=== PATIENT | female | born 1935 | race Two or more races ===

== ENCOUNTER 2020-01-01 14:22 | Outpatient (CLI) | payer BC, MEDICARE | END 2020-01-01 23:59 | disposition home or self-care (01) | LOC: WOU 14:22 | PROVIDERS: ATTEND Specialist | DX: S81.812D Laceration without foreign body, left lower leg, subsequent encounter (principal); W18.49XD Other slipping, tripping and stumbling without falling, subsequent encounter; Z79.01 Long term (current) use of anticoagulants | CPT/HCPCS: 99205; A6209; G0463 ==

== ENCOUNTER 2020-01-08 14:10 | Outpatient (CLI) | payer BC, MEDICARE | END 2020-01-08 23:59 | disposition home or self-care (01) | LOC: WOU 14:10 | PROVIDERS: ATTEND Specialist | DX: S81.012D Laceration without foreign body, left knee, subsequent encounter (principal); S81.812D Laceration without foreign body, left lower leg, subsequent encounter; W18.40XD Slipping, tripping and stumbling without falling, unspecified, subsequent encounter; I48.0 Paroxysmal atrial fibrillation; J45.20 Mild intermittent asthma, uncomplicated; Z79.01 Long term (current) use of anticoagulants | CPT/HCPCS: G0463 ==

== ENCOUNTER 2020-01-15 08:00 | Outpatient (CLI) | payer BC, MEDICARE | END 2020-01-15 23:59 | disposition home or self-care (01) | LOC: WOU 08:00 | PROVIDERS: ATTEND Specialist | DX: S81.812D Laceration without foreign body, left lower leg, subsequent encounter (principal); S81.012D Laceration without foreign body, left knee, subsequent encounter; W18.40XD Slipping, tripping and stumbling without falling, unspecified, subsequent encounter; I48.0 Paroxysmal atrial fibrillation; J45.20 Mild intermittent asthma, uncomplicated; Z79.01 Long term (current) use of anticoagulants | CPT/HCPCS: G0463 ==

== ENCOUNTER 2020-06-03 10:50 | Outpatient (CLI) | payer BC, MEDICARE | END 2020-06-03 23:59 | disposition home or self-care (01) | LOC: WOU 10:50 | PROVIDERS: ATTEND Specialist | DX: S81.812D Laceration without foreign body, left lower leg, subsequent encounter (principal); W22.8XXD Striking against or struck by other objects, subsequent encounter; I48.0 Paroxysmal atrial fibrillation; J45.20 Mild intermittent asthma, uncomplicated; Z79.01 Long term (current) use of anticoagulants | CPT/HCPCS: 99214; A6209 ×2; G0463 ==